=== PATIENT | female | born 2000 | race African-American/Black ===

== ENCOUNTER 2020-06-30 21:17 | Outpatient (CLI) | payer OTHER ==
[~2020-06-30] VITALS: Ht 157.5 cm; Wt 80.9 kg
[2020-06-30 21:41] VITALS: BP 116/72
== END 2020-06-30 22:32 | disposition home or self-care (01) ==
LOC: LDOP 21:17
PROVIDERS: ATTEND Obstetrics & Gynecology Maternal & Fetal Medicine
DX: O36.8130 Decreased fetal movements, third trimester, not applicable or unspecified (principal); Z3A.37 37 weeks gestation of pregnancy
CPT/HCPCS: 59025

== ENCOUNTER 2020-07-12 12:45 | Outpatient (CLI) | payer OTHER ==
[~2020-07-12] VITALS: Ht 158.8 cm; Wt 80.9 kg
[2020-07-12 13:52] VITALS: BP 115/61
[2020-07-12] MEDS ORDERED: PREN1TAB10 PO (14:53)
== END 2020-07-12 15:11 | disposition home or self-care (01) ==
LOC: LDOP 12:45
PROVIDERS: ATTEND Obstetrics & Gynecology Maternal & Fetal Medicine
DX: O42.92 Full-term premature rupture of membranes, unspecified as to length of time between rupture and onset of labor (principal); Z3A.39 39 weeks gestation of pregnancy
CPT/HCPCS: 59025; 89060; Q0114

== ENCOUNTER 2020-07-15 16:51 | Inpatient (IN) | payer OTHER ==
[~2020-07-15] VITALS: Ht 158.8 cm; Wt 80.9 kg
[~2020-07-15 16:51] MED LIST: PREN1TAB10 PO
[2020-07-15 17:00] VITALS: BP 126/77
[2020-07-15] MEDS: D5%-LACTATED RINGERS 1,000 ML IV SCH (17:30)
[2020-07-15] MEDS ORDERED: FENTANYL PF 100 MCG/2ML IV PRN (17:30)
[2020-07-15] MEDS ORDERED: OXYTOCIN 30U/ 0.9% NaCL 500ML 500 ML IV ONE (17:30)
[2020-07-15] MEDS ORDERED: TERBUTALINE 1 MG/ML, 1ML SQ PRN (17:30)
[2020-07-15] MEDS ORDERED: SODIUM CITRATE/CITRIC ACID 30 ML UDC PO PRN (17:30)
[2020-07-15] MEDS ORDERED: TERBUTALINE 1 MG/ML, 1ML IVPush PRN (17:30)
[2020-07-15] MEDS ORDERED: METOCLOPRAMIDE 5 MG/ML, 2ML IVPush PRN (17:30)
[2020-07-15] MEDS ORDERED: FENTANYL PF 100 MCG/2ML IVPush PRN (17:30)
[2020-07-15] MEDS: LACTATED RINGERS 1,000 ML IV SCH (17:33)
[2020-07-15] MEDS ORDERED: LIDOCAINE 1%, 20ML ONE (17:42)
[2020-07-15] MEDS ORDERED: NEWBORN KIT ONE (17:42)
[2020-07-15] MEDS ORDERED: OXYTOCIN 30U/ 0.9% NaCL 500ML 500 ML ONE (17:42)
[2020-07-15] MEDS ORDERED: MISOPROSTOL 200 MCG TABLET ONE (17:42)
[2020-07-15 17:52] LABS: BASOPHILS % (AUTO) 1 % (0-1); EOSINOPHILS % (AUTO) 0 % (1-7); LYMPHOCYTES % (AUTO) 10 % (22-44); MEAN CORPUSCULAR HEMOGLOBIN 29.2 pg (27.0-34.8); MEAN PLATELET VOLUME 7.9 fL (7.4-10.4); MONOCYTES % (AUTO) 9 % (2-9); NEUTROPHILS % (AUTO) 80 % (42-75); PLATELET COUNT 281 x10^3/uL (130-400); RED BLOOD COUNT 4.05 x10^6/uL (3.82-5.3); RED CELL DISTRIBUTION WIDTH 13.6 % (9.6-15.2)
[2020-07-15 18:07] LABS: MD NO
[2020-07-15] MEDS ORDERED: OXYTOCIN 30U/ 0.9% NaCL 500ML 500 ML IV PRN (19:00)
[2020-07-15] MEDS: OXYTOCIN 30U/ 0.9% NaCL 500ML 500 ML IV SCH ×2 (20:30→21:00)
[2020-07-15] MEDS ORDERED: MISOPROSTOL 200 MCG TABLET PR PRN (21:00)
[2020-07-15] MEDS ORDERED: ACETAMINOPHEN 325 MG TABLET PO PRN (21:00)
[2020-07-15] MEDS ORDERED: ONDANSETRON 2MG/ML, 2ML IV PRN (21:00)
[2020-07-15] MEDS ORDERED: DOCUSATE 100 MG CAPSULE PO PRN (21:00)
[2020-07-15] MEDS ORDERED: METHYLERGONOVINE 0.2 MG/ML IM PRN (21:00)
[2020-07-15] MEDS ORDERED: IBUPROFEN 600 MG TABLET PO PRN (21:00)
[2020-07-15] MEDS ORDERED: OXYcodone/APAP 5/325MG TABLET PO PRN (21:00)
[2020-07-15] MEDS ORDERED: CARBOPROST TROMETHAMINE 250 MCG/ML, 1ML IM PRN (21:00)
[2020-07-15] MEDS ORDERED: OXYcodone IR 5MG TABLET PO PRN (21:00)
[2020-07-15] MEDS ORDERED: SIMETHICONE 80 MG CHEW TAB PO PRN (21:00)
[2020-07-15] MEDS ORDERED: OXYcodone 5 MG/5 ML ORAL.SOL UDC ONE (22:19)
[2020-07-15] MEDS: OXYcodone 5 MG/5 ML ORAL.SOL UDC PO PRN (22:21)
[2020-07-15 23:50] VITALS: BP 114/67
[2020-07-16] MEDS: D5%-LACTATED RINGERS 1,000 ML IV SCH ×3 (01:30→17:30)
[2020-07-16] MEDS: LACTATED RINGERS 1,000 ML IV SCH ×3 (01:30→17:30)
[2020-07-16] MEDS: IBUPROFEN 100 MG/5 ML UDC PO PRN ×2 (04:38→22:05)
[2020-07-16 04:42] LABS: BASOPHILS % (AUTO) 0 % (0-1); EOSINOPHILS % (AUTO) 0 % (1-7); LYMPHOCYTES % (AUTO) 11 % (22-44); MEAN CORPUSCULAR HEMOGLOBIN 29.4 pg (27.0-34.8); MEAN CORPUSCULAR HGB CONC 33.4 g/dL (32.4-35.8); MEAN PLATELET VOLUME 8.4 fL (7.4-10.4); MONOCYTES % (AUTO) 8 % (2-9); NEUTROPHILS % (AUTO) 81 % (42-75); PLATELET COUNT 268 x10^3/uL (130-400); RED BLOOD COUNT 3.43 x10^6/uL (3.82-5.3); RED CELL DISTRIBUTION WIDTH 13.6 % (9.6-15.2)
[2020-07-16 04:44] LABS: MD NO
[2020-07-16 04:55] VITALS: BP 115/69
[2020-07-16] MEDS ORDERED: HEMORRHOIDAL SUPP.RECT PR PRN (06:00)
[2020-07-16] MEDS ORDERED: HEMORRHOIDAL OINT, 28 GM (PREP H) RC PRN (06:30)
[2020-07-16 07:05] VITALS: BP 94/66
[2020-07-16] MEDS: PRENATAL VIT/IRON/FA 1 EACH TABLET PO SCH (09:00)
[2020-07-16 11:24] VITALS: BP 105/52
[2020-07-16] MEDS: OXYcodone 5 MG/5 ML ORAL.SOL UDC PO PRN (12:51)
[2020-07-16 12:59] LABS: BASOPHILS % (AUTO) 1 % (0-1); EOSINOPHILS % (AUTO) 0 % (1-7); LYMPHOCYTES % (AUTO) 10 % (22-44); MEAN CORPUSCULAR HEMOGLOBIN 29.7 pg (27.0-34.8); MEAN CORPUSCULAR HGB CONC 33.8 g/dL (32.4-35.8); MEAN PLATELET VOLUME 7.9 fL (7.4-10.4); MONOCYTES % (AUTO) 7 % (2-9); NEUTROPHILS % (AUTO) 82 % (42-75); PLATELET COUNT 259 x10^3/uL (130-400); RED BLOOD COUNT 3.03 x10^6/uL (3.82-5.3); RED CELL DISTRIBUTION WIDTH 13.9 % (9.6-15.2)
[2020-07-16 13:01] LABS: MD NO
[2020-07-16 13:10] LABS: INTERNATIONAL NORMALIZED RATIO 1.13 (0.93-1.1); PROTHROMBIN TIME 12.1 Seconds (9.6-11.5)
[2020-07-16] MEDS ORDERED: MIDAZOLAM 1 MG/ML, 2ML ONE (13:20)
[2020-07-16] MEDS ORDERED: CEFAZOLIN 1,000 MG ONE ×2 (13:37)
[2020-07-16] MEDS ORDERED: ONDANSETRON 2MG/ML, 2ML ONE (13:41)
[2020-07-16] MEDS ORDERED: EPHEDRINE 50 MG/ML, 1ML ONE (13:41)
[2020-07-16] MEDS ORDERED: FENTANYL PF 100 MCG/2ML IV PRN (14:30)
[2020-07-16] MEDS ORDERED: EPHEDRINE 50 MG/ML, 1ML IVPush PRN (14:30)
[2020-07-16] MEDS ORDERED: ONDANSETRON 2MG/ML, 2ML IVPush PRN (14:30)
[2020-07-16] MEDS ORDERED: DIPHENHYDRAMINE 50 MG/ML, 1ML IVPush PRN (14:30)
[2020-07-16] MEDS ORDERED: morphine SULFATE 10 MG/ML, 1ML IVPush PRN (14:30)
[2020-07-16 16:40] VITALS: BP 103/67
[2020-07-16] MEDS: OXYTOCIN 30U/ 0.9% NaCL 500ML 500 ML IV SCH (17:00)
[2020-07-16 17:44] LABS: BASOPHILS % (AUTO) 0 % (0-1); EOSINOPHILS % (AUTO) 0 % (1-7); LYMPHOCYTES % (AUTO) 14 % (22-44); MEAN CORPUSCULAR HEMOGLOBIN 29.6 pg (27.0-34.8); MEAN CORPUSCULAR HGB CONC 33.1 g/dL (32.4-35.8); MEAN PLATELET VOLUME 7.7 fL (7.4-10.4); MONOCYTES % (AUTO) 4 % (2-9); NEUTROPHILS % (AUTO) 82 % (42-75); PLATELET COUNT 224 x10^3/uL (130-400); RED BLOOD COUNT 2.66 x10^6/uL (3.82-5.3); RED CELL DISTRIBUTION WIDTH 13.9 % (9.6-15.2)
[2020-07-16 17:49] LABS: MD NO
[2020-07-16 20:29] VITALS: BP 91/63
[2020-07-17 00:33] VITALS: BP 102/69
[2020-07-17] MEDS: LACTATED RINGERS 1,000 ML IV SCH ×3 (01:30→17:30)
[2020-07-17] MEDS: D5%-LACTATED RINGERS 1,000 ML IV SCH ×3 (01:30→17:30)
[2020-07-17] MEDS: OXYTOCIN 30U/ 0.9% NaCL 500ML 500 ML IV SCH ×3 (02:46→23:00)
[2020-07-17 04:15] VITALS: BP 95/58
[2020-07-17 08:35] VITALS: BP 97/68
[2020-07-17] MEDS: PRENATAL VIT/IRON/FA 1 EACH TABLET PO SCH (09:00)
[2020-07-17 12:15] VITALS: BP 102/67
[2020-07-17] MEDS ORDERED: FERROUS GLUCONATE 324 MG TABLET PO SCH (17:00)
[2020-07-17 17:56] LABS: BASOPHILS % (AUTO) 1 % (0-1); EOSINOPHILS % (AUTO) 3 % (1-7); LYMPHOCYTES % (AUTO) 19 % (22-44); MEAN CORPUSCULAR HEMOGLOBIN 30.1 pg (27.0-34.8); MEAN CORPUSCULAR HGB CONC 33.3 g/dL (32.4-35.8); MEAN PLATELET VOLUME 8.1 fL (7.4-10.4); MONOCYTES % (AUTO) 8 % (2-9); NEUTROPHILS % (AUTO) 69 % (42-75); PLATELET COUNT 233 x10^3/uL (130-400); RED BLOOD COUNT 2.53 x10^6/uL (3.82-5.3); RED CELL DISTRIBUTION WIDTH 14.3 % (9.6-15.2)
[2020-07-17 18:05] LABS: MD NO
[2020-07-17 21:00] VITALS: BP 109/73
[2020-07-18 04:51] LABS: BASOPHILS % (AUTO) 1 % (0-1); EOSINOPHILS % (AUTO) 5 % (1-7); LYMPHOCYTES % (AUTO) 23 % (22-44); MEAN CORPUSCULAR HEMOGLOBIN 30.5 pg (27.0-34.8); MEAN CORPUSCULAR HGB CONC 34.2 g/dL (32.4-35.8); MEAN PLATELET VOLUME 7.8 fL (7.4-10.4); MONOCYTES % (AUTO) 9 % (2-9); NEUTROPHILS % (AUTO) 63 % (42-75); PLATELET COUNT 234 x10^3/uL (130-400); RED BLOOD COUNT 2.59 x10^6/uL (3.82-5.3); RED CELL DISTRIBUTION WIDTH 13.9 % (9.6-15.2)
[2020-07-18 05:04] LABS: MD NO
[2020-07-18 07:19] VITALS: BP 116/77
[2020-07-18 09:00] VITALS: BP 99/66
[2020-07-18] MEDS: PRENATAL VIT/IRON/FA 1 EACH TABLET PO SCH (09:00)
[2020-07-18] MEDS ORDERED: IBUP-1222 PO (09:38)
[2020-07-18] MEDS ORDERED: DOCU100C33 PO (09:39)
[2020-07-18] MEDS ORDERED: FERR324T18 PO (09:40)
== END 2020-07-18 11:57 | disposition home or self-care (01) | DRG 768 ==
LOC: LDOP 16:51 → LDIP 17:26 → 2NW 23:40
PROVIDERS: ADMIT Obstetrics & Gynecology Maternal & Fetal Medicine; ATTEND Obstetrics & Gynecology Maternal & Fetal Medicine
PROC: 10E0XZZ Delivery of Products of Conception, External Approach (ICD-10-PCS; principal; 2020-07-15)
PROC: 0KQM0ZZ Repair Perineum Muscle, Open Approach (ICD-10-PCS; 2020-07-15)
PROC: 0U9G7ZZ Drainage of Vagina, Via Natural or Artificial Opening (ICD-10-PCS; 2020-07-16)
DX: O77.0 Labor and delivery complicated by meconium in amniotic fluid (principal); Z37.0 Single live birth; O71.7 Obstetric hematoma of pelvis; O70.1 Second degree perineal laceration during delivery; Z3A.40 40 weeks gestation of pregnancy; Z20.822 Contact with and (suspected) exposure to COVID-19; D64.9 Anemia, unspecified; O99.03 Anemia complicating the puerperium
CPT/HCPCS: 36415; 72195; 85025; 85610; 85730; 86592; 86850; 86900; 87635; G0378; J0690; J2250; J2405; J3010; J2590; J7120